=== PATIENT | female | born 2005 | race Two or more races ===

== ENCOUNTER 2025-06-21 19:54 | Emergency (ER) | payer MEDICAID, OTHER ==
[~2025-06-21] VITALS: Ht 165.1 cm; Wt 129.7 kg
[2025-06-21] MEDS ORDERED: IBUP-1456 PO (23:14)
[2025-06-21] MEDS ORDERED: AUG875T PO (23:14)
--- NOTE | 2025-06-21 23:14 | ED.PDOC ---
Eye-HPI HPI Comments REPORTS SHARP AND SUDDEN PAIN TO RIGHT SIDE OF MOUTH. REPORTS TOOTHACHE TO THE BACK OF MOUTH, REPORTS TOOTH IS CRACKED. UNABLE TO GO INTO DENTIST DUE TO NONE BEING OPEN, HOWEVER PATIENT REPORTS PAIN IS 10/10 AND UNBEARABLE. Chief Complaint: Tooth Pain Time Seen by MD: 20:01 Reviewed Notes: Nurses Notes, Medications, Allergies Allergies: Coded Allergies: NO KNOWN ALLERGIES (Unverified , 06/21/25) Information Source: Patient Mode of Arrival: Ambulatory Past Medical History PAST MEDICAL HISTORY: Denies Surgical History: Denies all surgeries COLD HEADER History: No Pertinent COLD HEADER History Family History Family History: Unknown Social History Smoker: Non-Smoker Alcohol: Denies ETOH Use Drugs: Denies Drug Use Constitutional: denies: chills, diaphoresis, fatigue, fever, malaise, sweats, weakness, others EENTM: reports: others (Dental pain); denies: blurred vision, double vision, ear bleeding, ear discharge, ear drainage, ear pain, ear ringing, eye pain, eye redness, hearing loss, mouth pain, mouth swelling, nasal discharge, nose bleeding, nose congestion, nose pain, photophobia, tearing, throat pain, throat swelling, voice changes Respiratory: denies: cough, hemoptysis, orthopnea, SOB at rest, shortness of breath, SOB with excertion, stridor, wheezing, others Cardiovascular: denies: chest pain, dizzy spells, diaphoresis, Dyspnea on exertion, edema, irregular heart beat, left arm pain, lightheadedness, palpitations, PND, syncope, others Gastrointestinal: denies: abdomen distended, abdominal pain, blood streaked bowels, constipated, diarrhea, dysphagia, difficulty swallowing, hematemesis, melena, nausea, poor appetite, poor fluid intake, rectal bleeding, rectal pain, vomiting, others Genitourinary: denies: abnormal vagina bleeding, burning, dyspareunia, dysuria, flank pain, frequency, hematuria, incontinence, pain, , vagina discharge, urgency, others Neurological: denies: dizziness, fainting, headache, left sided numbness, left sided weakness, numbness, paresthesia, pre-existing deficit, right sided numbness, right sided weakness, seizure, speech problems, tingling, tremors, weakness, others Musculoskeletal: denies: back pain, gout, joint pain, joint swelling, muscle pain, muscle stiffness, neck pain, others Integumetry: denies: bruises, change in color, change in hair/nails, dryness, laceration, lesions, lumps, rash, wounds, others Allergic/Immunocompromised: denies: Difficulty Healing, Frequent Infections, Hives, Itching, others Hematologic/Lymphatic: denies: anemia, blood clots, easy bleeding, easy bruising, swollen glands, others Endocrine: denies: excessive hunger, excessive sweating, excessive thirst, excessive urination, flushing, intolerance to cold, intolerance to heat, unexplained weight gain, unexplained weight loss, others Psychiatric: denies: anxiety, bipolar disorder, depression, hopeless, panic disorder, schizophrenia, sleepless, suicidal, others Physical Exam General Appearance: No Apparent Distress, Normal HEENT: Pharynx Normal, TMs Normal, Other (Tooth number 46 right lower molar moderate decay no noted drainage or abscess) Neck: Full Range of Motion, Non-Tender Respiratory: Lungs Clear, No Respiratory Distress, Normal Breath Sounds Cardiovascular: No Murmur, Normal Peripheral Pulses, Regular Rate/Rhythm Breast Exam: Deferred Gastrointestinal: Non Tender, Soft Genitalia: Deferred Pelvic: Deferred Rectal: Deferred Extremities: Normal range of motion, Non-tender Musculoskeletal : Apperance: Normal Neurologic: Alert, No Motor Deficits, Normal Affect, Normal Mood, No Sensory Deficits Cerebellar Function: Normal Reflexes: NOT DONE Skin: Dry, Normal Color, Warm Lymphatic: No Adenopathy Was a procedure done? Was a procedure done?: No EENT DIFF Eye: N/A Ear: N/A Nose: N/A Mouth: N/A Sore Throat: Nilesh's Angina, Peritonsillar Abscess, Peritonsillar Cellulitis, Pharyngitis X-Ray, Labs, Meds, VS Vital Signs Date Time Temp Pulse Resp B/P (MAP) Pulse Ox O2 Delivery O2 Flow Rate FiO2 06/21/25 19:55 98.0 84 19 148/73 98 98.0 X-Ray, Labs, Meds, VS Comment Patient given Rocephin, [place], Hurricaine spray, and Toradol she reports improvement in pain requesting discharge at this time. Script trial of antibiotics and NSAIDs advised to follow up with dental for resolution. ER return precautions given patient indicates understanding and agrees with discharge plan of care. Time of 1ST Reevaluation: 22:30 Reevaluation 1ST: Unchanged Time of 2ND Reevaluation: 23:13 Reevaluation 2ND: Improved Patient Education/Counseling: Diagnosis, Treatment, Prognosis, Need For Follow Up Family Education/Counseling: Diagnosis, Treatment, Prognosis, Need For Follow Up SEPSIS Sepsis Screen Date sepsis recognized/suspect: Jun 21, 2025 Time Sepsis recognized/suspect: 1954 Recent Procedure: No On Antibiotic Therapy: No Respiratory Rate >20: No Heart Rate >90: No Temp<36 C (96.8 F) or >38.3 C: No SBP <90 or MAP <65 mmHG: No New Acute Mental Status Change: No Is the patient on CPAP, BIPAP,: No Physician Orders Ceftriaxone Sodium (Rocephin) (06/21/25 23:15) Benzocaine (Dental) [place] (Hurricaine Sp (06/21/25 23:15) Hydrocodone-Acet 5/325mg Tab ([place] 5/32 (06/21/25 23:15) Ketorolac Injection (Toradol Injection) (06/21/25 23:15) Vital Signs Date Time Temp Pulse Resp B/P (MAP) Pulse Ox O2 Delivery O2 Flow Rate FiO2 06/21/25 19:55 98.0 84 19 148/73 98 98.0 Departure 1 Departure Time of Disposition: 23:13 Impression: Primary Impression: Infected dental caries Disposition: 01 HOME / SELF CARE / HOMELESS Condition: Stable e-Prescriptions Ibuprofen (Ibuprofen) 800 Mg Tab 800 MG PO Q8HP PRN for 5 Days, #15 TAB Prov: ALBERT NICOLE 06/21/25 Amoxicillin & Pot Clavulanate (AUGMENTIN TABLET) 875 Mg Tb 875 MG PO BID for 7 Days, #14 TAB Prov: ALBERT NICOLE 06/21/25 Discharged With: Relative (Mother) Critical Care Note Critical Care Time?: No Stability Stability form required: ALBERT Cristobal Jun 21, 2025 23:14
[2025-06-21 23:23] VITALS: BP 121/76; PULSE 74; RESP 19; TEMP 99.1; O2SAT 96
[2025-06-21] MEDS ORDERED: IBU600T PO (23:23)
[2025-06-21] MEDS: HYDROcodone-ACET 5/325MG TAB PO ONE (23:23)
[2025-06-21] MEDS: BENZOCAINE (DENTAL) 20 % SPRAY 60ML MT ONE (23:23)
[2025-06-21] MEDS: cefTRIAXone SOD 1,000 MG VL IM ONE (23:24)
[2025-06-21] MEDS: KETOROLAC TROMETH 60MG/2ML VIAL IM ONE (23:24)
== END 2025-06-21 23:43 | disposition home or self-care (01) ==
LOC: ER 19:54
DX: K02.9 Dental caries, unspecified (principal); Z79.899 Other long term (current) drug therapy
CPT/HCPCS: 96372; 99284; J0696; J1885